=== PATIENT | male | born 1970 | race Two or more races ===

== ENCOUNTER 2022-03-02 08:07 | Inpatient (IN) | payer OTHER ==
[~2022-03-02] VITALS: Ht 177.8 cm; Wt 83.5 kg
[2022-03-02] MEDS ORDERED: COZAAR100 MG (08:17)
[2022-03-03] MEDS ORDERED: XYZAL5 MG (15:41)
[2022-03-03] MEDS ORDERED: SINGULAIR 10MG10 MG (15:41)
[2022-03-03] MEDS ORDERED: DYMISTA NASAL S23 GM (15:41)
[2022-03-06] MEDS ORDERED: OXYC1TAB9 PO (10:46)
[2022-03-06] MEDS ORDERED: PROTONIX40 MG PO (10:46)
[2022-03-06] MEDS ORDERED: HYOSCYAMINE0.125 M1 SL (10:46)
== END 2022-03-06 15:31 | disposition home or self-care (01) | DRG 330 ==
LOC: ER 08:07 → SURH 12:26 → SURG 03-03 13:20
PROVIDERS: ADMIT Surgery; ATTEND Surgery
PROC: 0DB84ZZ Excision of Small Intestine, Percutaneous Endoscopic Approach (ICD-10-PCS; principal; 2022-03-02)
PROC: 0DBU4ZZ Excision of Omentum, Percutaneous Endoscopic Approach (ICD-10-PCS; 2022-03-02)
PROC: 4A12X4Z Monitoring of Cardiac Electrical Activity, External Approach (ICD-10-PCS; 2022-03-02)
DX: C17.9 Malignant neoplasm of small intestine, unspecified (principal); K56.690 Other partial intestinal obstruction; K21.9 Gastro-esophageal reflux disease without esophagitis; I11.9 Hypertensive heart disease without heart failure; Z20.822 Contact with and (suspected) exposure to COVID-19; E80.4 Gilbert syndrome; G47.39 Other sleep apnea